=== PATIENT | male | born 1950 | race Asian ===

== ENCOUNTER 2017-01-20 11:45 | Day surgery (SDC) | payer MEDICARE, OTHER ==
[~2017-01-20] VITALS: Ht 157.5 cm; Wt 76.0 kg
[~2017-01-20 11:45] MED LIST: 0.9% Sodium Chloride 1,000 ML IV PRN; ASPI81TA40 PO; ATRV10T PO; CARV25T PO; DOCU250C7 PO; FURO80TA PO; GABA300C PO; GLPZ5T1 PO; LACT10SO60 PO; LANT500T PO; PREG25CA PO; SENN17.26 PO; SEVE0.8P PO; Sodium Chloride LOK Flush 10 mL Syringe IV PRN; fentaNYL-PF 50 mCg/mL 2 mL Inj IVPUSH PRN
[2017-01-20 12:51] VITALS: BP 186/86; PULSE 71; RESP 18; O2SAT 98
[2017-01-20] MEDS ORDERED: LISI1TAB7 PO (13:00)
[2017-01-20] MEDS ORDERED: CLOP75TA28 PO (13:00)
[2017-01-20] MEDS ORDERED: INSU100V7 SUBQ (13:00)
[2017-01-20] MEDS ORDERED: INSU100I (13:00)
[2017-01-20] MEDS ORDERED: TAMS0.4C98 PO (13:00)
[2017-01-20] MEDS ORDERED: MYCO180T PO (13:00)
[2017-01-20] MEDS ORDERED: TACR1CAP PO (13:01)
[2017-01-20] MEDS ORDERED: PRED5SOL PO (13:01)
[2017-01-20] MEDS ORDERED: PRV40T PO (13:01)
[2017-01-20] MEDS ORDERED: RANI150T11 PO (13:01)
[2017-01-20] MEDS ORDERED: CINA30TA PO (13:01)
[2017-01-20] MEDS ORDERED: CARV25TA2 PO (13:02)
[2017-01-20] MEDS ORDERED: FURO80TA83 PO (13:02)
[2017-01-20] MEDS ORDERED: ASPI-973 PO (13:02)
[2017-01-20] MEDS ORDERED: GABA-502 PO (13:02)
[2017-01-20] MEDS ORDERED: ATRV10T PO (13:02)
[2017-01-20 14:23] VITALS: BP 109/56; PULSE 59; RESP 16; O2SAT 94
[2017-01-20 14:33] VITALS: BP 112/54; PULSE 58; RESP 16; O2SAT 94
[2017-01-20 14:41] VITALS: BP 121/75; PULSE 57; RESP 16; O2SAT 94
--- NOTE | 2017-01-20 20:55 | ENDO ---
[address] [address] ENDOSCOPY PROCEDURE PATIENT: PAN KANG : 1950 MR#: [id number] ADMIT: 01/20/2017 JOB ID: [id number] PRIMARY PROVIDER: Clint Betancourt DO. PROCEDURE: Colonoscopy with hot snare polypectomy. INDICATIONS: A 66-year-old male who is way overdue for the recommended repeat colonoscopy. Back in 2007, he was found to have three small polyps in the transverse colon region that were to come out by repeat exam when he was off Plavix. He only returned to our clinic in more recent times. He has not had any significant change in bowel habit. EQUIPMENT: [employer]. SEDATION: 3 mg Versed and 75 mcg fentanyl. COMPLICATIONS: None identified. BOWEL PREPARATION: Fair, adequate exam. PROCEDURE INFORMATION: After the risks and benefits were explained, written and verbal informed consent was obtained, the patient was brought into the endoscopy suite and placed into the left lateral decubitus position. Sedation was achieved using the above-stated medications with the addition of oxygen via nasal cannula. A digital rectal examination was accomplished. Apart from some mild internal and external, nonbleeding, nonthrombosed hemorrhoids, no other pathology was appreciated. The scope was introduced into the rectum and advanced under direct visualization to cecum as identified by the appendiceal orifice and ileocecal valve. The scope was slowly withdrawn to carefully examine the mucosa for any defects or lesions. Multiple direct views were made through the dentate line for exclusion of pathology. The colon was decompressed, the scope removed the patient who tolerated the procedure well. FINDINGS: There were a couple of small, perhaps 5 mm or less polyps in the transverse removed with hot snare. I did not see a third or any other significant mucosal pathology throughout. There were some mild petechiae in the rectosigmoid region suggestive of some prep artifact. Otherwise, no pathology appreciated throughout. ENDOSCOPIC DIAGNOSES: Colon polyps x2. RECOMMENDATIONS: 1. Await histopathology. 2. Repeat colonoscopy in five years. 3. Okay to restart Plavix in the next 3-4 days.
--- NOTE | 2017-01-22 11:02 | PATH ---
SURGICAL PATHOLOGY Attending Physician:Kinza Baldwin CASE STATUS: Signed Out PATIENT NAME: PAN KANG PID: [id number] : 1950 DATE COLLECTED:01/20/2017 00:00 SPECIMEN: Colon, Biopsy CLINICAL HISTORY: 1). POLYPS COLON FINAL DIAGNOSIS: Colon Polyps: Tubular adenoma. ICD10 D12.6 GROSS DESCRIPTION: The specimen is received in one formalin filled container labeled with the patient's name, sublabeled "colon polyps" and consists of 2 portions of tissue which aggregate to 0.3 x 0.3 x 0.2 CM. The specimen is entirely submitted in one cassette. 01/21/2017 [facility] ICD-9 CODES: CPT CODES: 1: 89845 Electronically Signed Out Van Arguello MD Formerly [facility] Pathology [facility] [address], [place] [address] Technical component performed at [facility], [facility] [address], [address]
== END 2017-01-20 23:59 | disposition home or self-care (01) ==
LOC: END 11:45
PROVIDERS: ATTEND Internal Medicine Gastroenterology
DX: Z12.11 Encounter for screening for malignant neoplasm of colon (principal); D12.3 Benign neoplasm of transverse colon; K59.8 Other specified functional intestinal disorders; K64.8 Other hemorrhoids; K64.4 Residual hemorrhoidal skin tags; I10 Essential (primary) hypertension; E11.9 Type 2 diabetes mellitus without complications; E78.5 Hyperlipidemia, unspecified; D64.9 Anemia, unspecified; I48.0 Paroxysmal atrial fibrillation; I47.2 Ventricular tachycardia; H15.11 Episcleritis periodica fugax; I25.2 Old myocardial infarction; I73.9 Peripheral vascular disease, unspecified; Z95.1 Presence of aortocoronary bypass graft; Z95.5 Presence of coronary angioplasty implant and graft; Z94.0 Kidney transplant status; Z79.82 Long term (current) use of aspirin; Z79.02 Long term (current) use of antithrombotics/antiplatelets; Z79.4 Long term (current) use of insulin
CPT/HCPCS: 45385; 88305; G0500; J7030